=== PATIENT | male | born 1975 ===

== ENCOUNTER 2019-10-21 | Day surgery (SDC) | payer SELFPAY ==
[~2019-10-21] MED LIST: IBUPROFEN600 MG PO; MELOXICAM7.5 MG PO; [UNRECOGNIZED DRUG - OTHER] PO
[2019-10-21] MEDS ORDERED: DILAUDID2 MG PO (13:12)
== END 2019-10-21 14:15 | disposition home or self-care (01) | DRG 419 ==
PROC: 0FT44ZZ Resection of Gallbladder, Percutaneous Endoscopic Approach (ICD-10-PCS; principal; 2019-10-21)
DX: K80.10 Calculus of gallbladder with chronic cholecystitis without obstruction (principal)
CPT/HCPCS: J0131; J2710